=== PATIENT | male | born 1965 | race Caucasian/White ===

== ENCOUNTER 2024-01-10 06:11 | Day surgery (SDC) | payer BC, SELFPAY ==
[2024-01-04 07:24] VITALS: BMI 31.3
[2024-01-04 09:20] LABS: Hematocrit 44.2 % (39.0-52.0); Hemoglobin 15.2 g/dL (13.0-18.0); Mean Corp Hgb Conc. 34.4 g/dL (33.0-37.0); Mean Corpuscular Hgb 32.1 pg (27.0-31.0); Mean Corpuscular Volume 93.2 fL (80.0-94.0); Mean Platelet Volume 9.5 fL (7.4-10.4); Platelet Count 177 10^3/uL (130-400); Red Blood Cell Count 4.74 10^6/uL (4.70-6.10); Red Cell Dist. Width 11.8 % (11.5-14.5); White Blood Cell Count 6.3 10^3/uL (4.8-10.8)
[2024-01-04 10:27] LABS: Blood Urea Nitrogen 27 mg/dl (9-20); Calcium 9.9 mg/dl (8.4-10.2); Carbon Dioxide 23 mmol/L (22-30); Chloride 100 mmol/L (98-107); Estimated Creatinine Clearance 93 ml/min; Glucose 87 mg/dl (70-99); Potassium 4.8 mmol/L (3.5-5.1); Sodium 135 mmol/L (135-145); eGFR > 60.00
[2024-01-10] VITALS (10 sets, daily range): BP systolic 89–114; BP diastolic 60–73; BMI 31.3
[2024-01-10 06:34] LABS: Glucose - Point of Care 96 mg/dl (70-99)
[2024-01-10] MEDS: NORMOSOL-R 1000 IV (06:34)
[2024-01-10] MEDS: TYLENOL 1000 MG PO (06:35)
--- NOTE | 2024-01-10 06:55 | HP.FOC2 ---
Focused History & Physical
Chief Complaint
HPI:
Chief Complaint: Bilateral inguinal hernias
HPI / Indication for Planned Procedure: Patient is a 58-year-old male recently seen in outpatient surgical evaluation secondary to right inguinal discomfort and pain as well as swelling. Physical examination confirmed the presence of a right as
well as left inguinal hernia he presents today for scheduled operative correction.
Relevant Past Medical History: Other (Hypertension, sleep apnea, GERD, hypercholesterolemia, diabetes)
Relevant Social History: Negative
Relevant Family History: Negative
Relevant Past Surgical History: Positive for (Was obtained, eye procedure, tonsillectomy/uvulectomy)
Review of Systems
Review of Pertinent Systems: All Systems Negative
Medication
See Medication form for detailed medications: Yes
Medication List (including Herbals & OTC):
ascorbic acid (vitamin C) 1,000 mg tablet (Vitamin C) 1,000 mg PO DAILY 01/04/24
aspirin 325 mg tablet 325 mg PO DAILY 01/04/24
aspirin 81 mg chewable tablet 81 mg PO DAILY 01/04/24
atorvastatin 20 mg tablet 20 mg PO DAILY 01/04/24
cholecalciferol (vitamin D3) 25 mcg (1,000 unit) tablet (Vitamin D3) 25 mcg PO BID 01/04/24
cyanocobalamin (vitamin B-12) 500 mcg tablet 500 mcg PO DAILY 01/04/24
empagliflozin 25 mg tablet (Jardiance) 25 mg PO DAILY 01/04/24
exenatide microspheres 2 mg/0.85 mL subcutaneous auto-injector (BydureUnidym BCise) 2 mg SC QWEEK 01/04/24
metformin 500 mg tablet 500 mg PO BID 01/04/24
olmesartan 40 mg-hydrochlorothiazide 12.5 mg tablet 1 tab PO QPM 01/04/24
omega 6-eob-akd-fish oil 1,200 mg (144 mg-216 mg) capsule 1 cap PO BID 01/04/24
Medications Reviewed: Yes
Allergies and Reactions
Patient has Allergies: No
Noted Allergies and Reactions:
Allergy/AdvReac Type Severity Reaction Status Date / Time
NKA - No Known Allergies Allergy Unknown Uncoded 01/10/24 06:17
Pertinent Physical Exam
All Other Systems: Negative
Head/Neck: Normal
Lungs: Normal
Heart: Normal
Abdomen: Other (Bilateral inguinal hernias right-sided larger than left)
Extremities: Normal
Neurological: Normal
Diagnosis / Assessment
58-year-old male presenting for scheduled operative correction of bilateral inguinal hernias
Plan / Procedure
Robotic assisted laparoscopic repair bilateral inguinal hernias with mesh
Anesthesia/Sedation to be done by Anesthesia Provider: Yes
--- NOTE | 2024-01-10 06:58 | W.SUR.PREOP ---
Pre-Operative Surgical Note
-
I have examined this patient prior to the performance of the scheduled procedure.
The patient's condition is unchanged from the time of the current History and
Physical and the patient is able to undergo the scheduled procedure.
--- NOTE | 2024-01-10 10:48 | W.IMMPOSTOP ---
Addendum entered and electronically signed by Gerard Metcalf MD 01/10/24 10:59:
#[id number]
Original Note:
Surgical Immed Post Op Note
-
Primary Surgeon: Dixon
Assisting Surgeon: Randal Khan PGY 1
Pre-op Diagnosis: B/L IH
Post-op Diagnosis: B/L IH - direct
Procedure Performed: RAL repair b/l IH with mesh; 3d max ex large regular wt
Anesthesia Type: GETA + 0.25% Marcaine
Specimen / Cultures: none
Estimated Blood Loss: 12mL
Complications: none immediate
Operative Findings: Large bilateral direct inguinal hernias with scrotal extension. 3d max extra large regular wt mesh repairs. attenuated transversalis fascia plicated and secured to coopers ligament.
[2024-01-10 10:55] LABS: Glucose - Point of Care 118 mg/dl (70-99)
== END 2024-01-10 12:20 | disposition home or self-care (01) ==
LOC: SDS 06:11
PROVIDERS: ATTENDING PHYSICIAN Surgery; FAMILY PHYSICIAN Family Medicine
DX: K40.20 Bilateral inguinal hernia, without obstruction or gangrene, not specified as recurrent (principal)
CPT/HCPCS: 49505; 36415; 80048; 82962; 85027; 93005; C1781